=== PATIENT | female | born 1990 | race Caucasian/White ===

== ENCOUNTER 2018-04-06 19:12 | Emergency (ER) | payer OTHER ==
[~2018-04-06] VITALS: Ht 162.6 cm; Wt 54.4 kg
[2018-04-06 19:17] VITALS: BP 127/87
--- NOTE | 2018-04-06 19:17 | NUR ---
PT PRESENTS TO ED WITH RIGHT HIP PAIN RADIATING DOWN RIGHT POSTERIOR LEG X1 MONTH. PT STATES SITTING WORSENS PAIN. C/O MIDLE TINGLING. CMS INTACT BILAT LOWER EXTREMITIES. 6/10 PAIN. DENIES TRAUMA. VSS. POSITIONED IN BED FOR COMFORT. ACCOMPANIED BY MOTHER. ER MD AWARE. CONTINUE TO MONITOR.
--- NOTE | 2018-04-06 19:17 | NUR ---
PT TAKEN TO BED 2
[2018-04-06] MEDS ORDERED: IBUPROFEN 800 MG TAB PO ONE (20:30)
[2018-04-06 21:05] VITALS: BP 119/82
--- NOTE | 2018-04-06 21:05 | NUR ---
DPatient discharged with v/s stable. Written and verbal after care instructions given and explained. Patient alert, oriented and verbalized understanding of instructions. Ambulatory with steady gait. All questions addressed prior to discharge. ID band removed. Patient advised to follow up with PMD. Rx of MOTRIN 800MG given. Patient educated on indication of medication including possible reaction and side effects. Opportunity to ask questions provided and answered.
== END 2018-04-06 21:05 | disposition home or self-care (01) ==
LOC: MED 19:12
DX: M54.41 Lumbago with sciatica, right side (principal)
CPT/HCPCS: 72100; 81002; 81025; 99283